=== PATIENT | male | born 1935 | race Caucasian/White ===

== ENCOUNTER 2017-01-25 22:17 | Observation (INO) | payer OTHER ==
--- NOTE | 2017-01-25 22:41 | CPEKG ---
Heart Rate: 70 RR Interval: 857 P-R Interval: 248 QRSD Interval: 88 QT Interval: 404 QTC Interval: 436 P Louisa: 21 QRS Louisa: -1 T Wave Louisa: 237 EKG Severity - ABNORMAL ECG - EKG Impression: SINUS RHYTHM EKG Impression: FIRST DEGREE AV BLOCK EKG Impression: LVH WITH SECONDARY REPOLARIZATION ABNORMALITY Electronically Signed By: Dedra Oakley 26-Jan-2017 01:25:03
--- NOTE | 2017-01-25 22:42 | EDPHY ---
H & P Stated Complaint: CP earlier today, high BP, feeling "off". HPI/ROS: HPI CHIEF COMPLAINT: Chest pain, hypertension HISTORY OF PRESENT ILLNESS: This patient is a very pleasant 81-year-old male, he has significant past medical history for anxiety, hypertension, chronic back pain and neck pain esophagitis, left chest pacemaker, as well as coronary artery disease without stents. He presents emergency room he states because over the past 5 hours he has had intermittent left-sided chest discomfort. He describes an achy sensation. Nonradiating. Also additionally he took his blood pressure at home and found that he was getting readings in the 180s over 100s. Since arriving to the emergency room he denies any chest pain. Denies any shortness of breath. He does report he had some nausea earlier. No vomiting. Additionally complains of chronic neck pain and back pain. Past Medical History: Chronic neck and back pain, hypertension, coronary disease without, anxiety, Mcmullen's esophagus Past Surgical History: Left chest pacemaker Social History: Denies daily use of drugs alcohol tobacco products. Family History: Noncontributory ROS REVIEW OF SYSTEMS: A comprehensive 10 point review of systems is otherwise negative aside from elements mentioned in the history of present illness. Exam Constitutional appears well nontoxic, triage nursing summary reviewed, vital signs reviewed, awake/alert. Eyes normal conjunctivae and sclera, EOMI, PERRLA. HENT normal inspection, atraumatic, moist mucus membranes, no epistaxis, neck supple/ no meningismus, no raccoon eyes. Respiratory clear to auscultation bilaterally, normal breath sounds, no respiratory distress, no wheezing. Cardiovascular rate normal, regular rhythm, no murmur, no edema, distal pulses normal. Gastrointestinal soft, non-tender, no rebound, no guarding, normal bowel sounds, no distension, no pulsatile mass. Genitourinary no CVA tenderness. Musculoskeletal no midline vertebral tenderness, full range of motion, no calf swelling, no tenderness of extremities, no meningismus, good pulses, neurovascularly intact. Skin pink, warm, & dry, no rash, skin atraumatic. Neurologic awake, alert and oriented x 3, AAOx3, moves all 4 extremities equally, motor intact, sensory intact, CN II-XII intact, normal cerebellar, normal vision, normal speech. Psychiatric normal mood/affect. Heme/Lymph/Immune no lymphadenopathy. Differential diagnosis includes but is not limited to: ACS, atypical chest pain , pneumothorax, pneumonia, pulmonary embolism, aortic dissection, congestive heart failure, tumor, musculoskeletal pain, esophageal pain, GERD, peptic ulcer disease, pancreatitis Medical Decision Making: Plan for this patient IV establishment, he is chest pain-free at this time, EKG, chest x-ray, blood work including troponin. Rule out acute coronary syndrome. Re-evaluation: EKG interpretation by me on record in [facility] system. Impression time of EKG 05/20/2038, this is sinus rhythm first-degree AV block noted. CO interval 248. LVH present. Room when I compare this EKG to his old EKG dated 03/01/2014 there appears to be more prominent ST depression in lead 1 aVL only 2. Otherwise no acute changes appreciated. 2352: Patient's blood pressure still 176/80. Chest pain-free. Plan will be for admission for chest discomfort, subtle ST depression in the lateral leads on his EKG as well as hypertension. I do not have a great explanation for his chest discomfort. He does not have chest pain at this time. However he did have a dull achy pain in left side of his chest. Troponin noted be negative. Blood pressure still elevated. I have ordered him IV hydralazine. Given his age, risk factors including hypertension, coronary artery disease subtle abnormal EKG and age old mid to the hospital for cardiac evaluation and rule out. 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, glaucoma, PROSTATIS, KNEE SURGERY - Social History Smoking Status: Former smoker Constitutional: Initial Vital Signs Heart Rate 70 01/25/17 22:23 Respiratory Rate 16 01/25/17 22:23 Blood Pressure 182/83 H 01/25/17 22:23 O2 Sat (%) 95 01/25/17 22:23 O2 Delivery Mode Room Air Allergies/Adverse Reactions: NSAIDS (Non-Steroidal Anti-Inflamma Allergy (Unknown, Verified 06/16/15 21:35) Penicillins Allergy (Unknown, Verified 06/16/15 21:35) amlodipine besylate [From Norvasc] Allergy (Verified 12/30/15 16:14) sulfamethoxazole [From Bactrim] Allergy (Verified 01/25/17 22:31) trimethoprim [From Bactrim] Allergy (Verified 01/25/17 22:31) contrast dye Allergy (Unknown, Uncoded 04/12/12 22:57) Home Medications: Medication Instructions Recorded Atorvastatin Calcium [Lipitor 10 5 mg PO DAILY 03/20/14 mg (*)] Cholecalciferol (Vitamin D3) 2,000 unit PO DAILY 03/20/14 [Vitamin D3] Lisinopril [Zestril 20 mg (*)] 20 mg PO DAILY 03/20/14 Multivitamins [Multivitamin (*)] 1 each PO DAILY 03/20/14 Nebivolol HCl [Bystolic 5 mg (*)] 2.5 mg PO HS 03/20/14 [place]-3 Fatty Acids [Fish Oil 1000 1,000 mg PO HS 03/20/14 mg (*)] Sertraline HCl [Zoloft 50mg (*)] 75 mg PO DAILY 03/20/14 oxyCODONE/APAP 5/325 [Percocet 1 tab PO Q6H PRN 03/20/14 5/325 (*)] Aspirin [Aspirin 81mg (*)] 81 mg PO DAILY 02/20/16 Lansoprazole [Prevacid] 15 mg PO DAILY 02/20/16 Latanoprost 0.005% [Xalatan 0.005% 1 drops EACHEYE HS 02/20/16 (*)] Levothyroxine [Synthroid 112 mcg 112 mcg PO DAILY06 01/26/17 (*)] clonazePAM [Klonopin (*)] 0.5 - 1 mg PO HS PRN 01/26/17 Medical Decision Making - Data Points Laboratory Results: Laboratory Results 01/25/17 22:57 01/25/17 22:57 Medications Given: Discontinued Medications Clonazepam (Klonopin) 0.5 mg PO ONCE ONE Stop: 01/26/17 00:09 Last Admin: 01/26/17 00:16 Dose: 0.5 mg Hydralazine HCl (Apresoline) 10 mg IVP EDNOW ONE Stop: 01/25/17 23:52 Last Admin: 01/26/17 00:07 Dose: 10 mg Sodium Chloride (Ns) 500 mls @ 1,000 mls/hr IV EDNOW ONE PRN Reason: Protocol Stop: 01/25/17 23:23 Last Admin: 01/25/17 23:07 Dose: 500 mls Oxycodone/Acetaminophen (Percocet 5/325) 1 tab PO ONCE ONE Stop: 01/26/17 00:09 Last Admin: 01/26/17 00:16 Dose: 1 tab Departure - Departure Disposition: [facility] Acute Clinical Impression: Chest pain Qualifiers: Chest pain type: unspecified Qualified Code(s): R07.9 - Chest pain, unspecified Hypertension Qualifiers: Hypertension type: unspecified Qualified Code(s): I10 - Essential (primary) hypertension Condition: Fair
[2017-01-25] MEDS ORDERED: NS 500 ML IV ONE (22:54)
[2017-01-25 23:05] LABS: % IMMATURE GRANULYOCYTES 0.3 % (0.0-1.1); ABSOLUTE IMMATURE GRANULOCYTES 0.02 10^3/uL (0.00-0.10); ADD DIFF? NO; ADD MORPH? NO; ADD SCAN? NO; ATYPICAL LYMPHOCYTE FLAG 10 (0-99); FRAGMENT RBC FLAG 0 (0-99); HEMOGLOBIN 13.6 g/dL (13.7-17.5); LEFT SHIFT FLG 0 (0-99); LIPEMIA HEMOLYSIS FLAG 90 (0-99); MEAN CELL HEMOGLOBIN 31.6 pg (27.9-34.1); MEAN CELL HEMOGLOBIN CONCENTR. 34.9 g/dL (32.4-36.7); MEAN CELL VOLUME 90.5 fL (81.5-99.8); MEAN PLATELET VOLUME 10.1 fL (8.7-11.7); PLATELET CLUMPS FLAG 0 (0-99); PLATELET COUNT 172 10^3/uL (150-400); RED BLOOD CELL COUNT 4.31 10^6/uL (4.40-6.38); RED CELL DISTRIBUTION WIDTH 12.6 % (11.5-15.2)
[2017-01-25 23:14] LABS: APTT 29.7 SEC (23.0-38.0); INR 1.06 (0.83-1.16); PROTIME(PATIENT) 13.7 SEC (12.0-15.0)
[2017-01-25 23:17] LABS: ALANINE AMINOTRANSFERASE 28 IU/L (21-72); ALBUMIN 3.8 g/dL (3.5-5.0); ALKALINE PHOSPHATASE 42 IU/L (38-126); ANION GAP 13 mEq/L (8-16); ASPARTATE AMINOTRANSFERASE 32 IU/L (17-59); BILIRUBIN,TOTAL 0.3 mg/dL (0.1-1.4); BILIRUBIN-CONJUGATED 0.1 mg/dL (0.0-0.5); BILIRUBIN-UNCONJUGATED 0.2 mg/dL (0.0-1.1); CALCIUM 9.3 mg/dL (8.5-10.4); CARBON DIOXIDE 28 mEq/l (22-31); CHLORIDE 99 mEq/L (97-110); GLOMERULAR FILTRATION RATE > 60; GLUCOSE 120 mg/dL (70-100); MAGNESIUM 1.9 mg/dL (1.6-2.3); POTASSIUM 4.6 mEq/L (3.5-5.2); SODIUM 140 mEq/L (134-144); TOTAL PROTEIN 7.1 g/dL (6.3-8.2)
[2017-01-25 23:29] LABS: TROPONIN I 0.019 ng/mL (0.000-0.034)
[2017-01-25 23:48] LABS: CK-MB INTERPRETATION NEGATIVE (NEGATIVE)
[2017-01-25] MEDS ORDERED: hydrALAZINE 20 MG/ML VIAL IVP ONE (23:51)
[2017-01-25] MEDS ORDERED: ACETAMINOPHEN 325 MG TAB PO PRN (23:55)
[2017-01-25] MEDS ORDERED: ONDANSETRON 4 MG/2 ML VIAL IVP PRN (23:55)
[2017-01-25] MEDS ORDERED: ONDANSETRON DISINTEGRATING 4 MG TAB PO PRN (23:55)
[2017-01-26] MEDS ORDERED: clonazePAM 0.5 MG TAB PO ONE (00:08)
[2017-01-26] MEDS ORDERED: OXYCODONE/APAP 5/325 TAB PO ONE (00:08)
[2017-01-26] MEDS ORDERED: OXYCODONE/APAP 5/325 TAB ONE (00:11)
[2017-01-26] MEDS ORDERED: clonazePAM 0.5 MG TAB ONE (00:15)
--- NOTE | 2017-01-26 01:35 | PDGENHP ---
History and Physical - Chief Complaint Chest pain - History of Present Illness 81 yo M w/ hx of SSS s/p PPM, HTN, and CAD s/p angioplasty of LCx in 2016 presents with chest discomfort. Patient states he was taking a mild walk when he started to notice what he describes as a spasm in his left chest. This would last a few minutes and then go away. This occurred multiple times over the next couple of hours no matter what activity he was doing. He checked his BP at home and it was elevated so he decided to come to the ED. History Information - Allergies/Home Medication List Allergies/Adverse Reactions: NSAIDS (Non-Steroidal Anti-Inflamma Allergy (Unknown, Verified 06/16/15 21:35) Penicillins Allergy (Unknown, Verified 06/16/15 21:35) amlodipine besylate [From Norvasc] Allergy (Verified 12/30/15 16:14) sulfamethoxazole [From Bactrim] Allergy (Verified 01/25/17 22:31) trimethoprim [From Bactrim] Allergy (Verified 01/25/17 22:31) contrast dye Allergy (Unknown, Uncoded 04/12/12 22:57) Home Medications: Atorvastatin Calcium [Lipitor 10 mg (*)] 5 mg PO DAILY 03/20/14 [Last Taken 21:00] Cholecalciferol (Vitamin D3) [Vitamin D3] 2,000 unit PO DAILY 03/20/14 [Last Taken 02/21/16] Lisinopril [Zestril 20 mg (*)] 5 mg PO DAILY 03/20/14 [Last Taken 02/28/16] Multivitamins [Multivitamin (*)] 1 each PO DAILY 03/20/14 [Last Taken 02/21/16] Nebivolol HCl [Bystolic 5 mg (*)] 2.5 mg PO HS 03/20/14 [Last Taken 02/29/16 07: 30] [place]-3 Fatty Acids [Fish Oil 1000 mg (*)] 1,000 mg PO HS 03/20/14 [Last Taken 02/21/16] Sertraline HCl [Zoloft 50mg (*)] 75 mg PO DAILY 03/20/14 [Last Taken 02/29/16 07 :30] clonazePAM [Klonopin (*)] 0.5 - 1 mg PO HS PRN 03/20/14 [Last Taken 02/28/16 21: 00] oxyCODONE/APAP 5/325 [Percocet 5/325 (*)] 1 tab PO Q4 PRN 03/20/14 [Last Taken 02/29/16 07:30] Aspirin 02/20/16 [Last Taken 02/29/16 07:30] Lantanoprost 02/20/16 [Last Taken 02/28/16 21:00] Prevacid 02/20/16 [Last Taken 02/29/16 07:30] Synthroid PO 02/20/16 [Last Taken 02/29/16 07:30] I have personally reviewed and updated: family history, medical history - Past Medical History coronary artery disease, hypertension Additional medical history: SSS s/p PPM - Surgical History Reports: pacemaker/AICD - Family History Positive for: CAD - Social History Smoking Status: Former smoker Review of Systems Review of Systems: ROS: 10pt was reviewed & negative except for what was stated in HPI & below Physical Exam Physical Exam: Temp Pulse Resp BP Pulse Ox 68 16 143/71 H 96 01/26/17 00:15 01/26/17 00:15 01/26/17 00:15 01/26/17 00:15 Constitutional: no apparent distress, not in pain Eyes: PERRL, EOMI Ears, Nose, Mouth, Throat: moist mucous membranes, no oral mucosal ulcers Cardiovascular: regular rate and rhythym, systolic murmur, No edema Respiratory: no respiratory distress, no rales or rhonchi Gastrointestinal: normoactive bowel sounds, soft, non-tender abdomen Skin: warm, normal color Musculoskeletal: full muscle strength, no muscle tenderness Neurologic: AAOx3, CN II-XII Intact Lab Data & Imaging Review 01/25/17 22:57 01/25/17 22:57 WBC 7.62 10^3/uL (3.80-9.50) 01/25/17 22:57 RBC 4.31 10^6/uL (4.40-6.38) L 01/25/17 22:57 Hgb 13.6 g/dL (13.7-17.5) L 01/25/17 22:57 Hct 39.0 % (40.0-51.0) L 01/25/17 22:57 MCV 90.5 fL (81.5-99.8) 01/25/17 22:57 MCH 31.6 pg (27.9-34.1) 01/25/17 22:57 MCHC 34.9 g/dL (32.4-36.7) 01/25/17 22:57 RDW 12.6 % (11.5-15.2) 01/25/17 22:57 Plt Count 172 10^3/uL (150-400) 01/25/17 22:57 MPV 10.1 fL (8.7-11.7) 01/25/17 22:57 Neut % (Auto) 69.4 % (39.3-74.2) 01/25/17 22:57 Lymph % (Auto) 18.0 % (15.0-45.0) 01/25/17 22:57 Parmer % (Auto) 10.6 % (4.5-13.0) 01/25/17 22:57 Eos % (Auto) 1.3 % (0.6-7.6) 01/25/17:57 Baso % (Auto) 0.4 % (0.3-1.7) 01/25/17 22:57 Nucleat RBC Rel Count 0.0 % (0.0-0.2) 01/25/17 22:57 Absolute Neuts (auto) 5.29 10^3/uL (1.70-6.50) 01/25/17 22:57 Absolute Lymphs (auto) 1.37 10^3/uL (1.00-3.00) 01/25/17 22:57 Absolute Monos (auto) 0.81 10^3/uL (0.30-0.80) H 01/25/17 22:57 Absolute Eos (auto) 0.10 10^3/uL (0.03-0.40) 01/25/17 22:57 Absolute Basos (auto) 0.03 10^3/uL (0.02-0.10) 01/25/17 22:57 Absolute Nucleated RBC 0.00 10^3/uL (0-0.01) 01/25/17 22:57 Immature Gran % 0.3 % (0.0-1.1) 01/25/17 22:57 Immature Gran # 0.02 10^3/uL (0.00-0.10) 01/25/17 22:57 PT 13.7 SEC (12.0-15.0) 01/25/17 22:57 INR 1.06 (0.83-1.16) 01/25/17 22:57 APTT 29.7 SEC (23.0-38.0) 01/25/17 22:57 Sodium 140 mEq/L (134-144) 01/25/17 22:57 Potassium 4.6 mEq/L (3.5-5.2) 01/25/17 22:57 Chloride 99 mEq/L (97-110) 01/25/17 22:57 Carbon Dioxide 28 mEq/l (22-31) 01/25/17 22:57 Anion Gap 13 mEq/L (8-16) 01/25/17 22:57 BUN 34 mg/dL (7-23) H 01/25/17 22:57 Creatinine 1.0 mg/dL (0.7-1.3) 01/25/17 22:57 Estimated GFR > 60 01/25/17 22:57 Glucose 120 mg/dL (70-100) H 01/25/17 22:57 Calcium 9.3 mg/dL (8.5-10.4) 01/25/17 22:57 Magnesium 1.9 mg/dL (1.6-2.3) 01/25/17 22:57 Total Bilirubin 0.3 mg/dL (0.1-1.4) 01/25/17 22:57 Conjugated Bilirubin 0.1 mg/dL (0.0-0.5) 01/25/17 22:57 Unconjugated Bilirubin 0.2 mg/dL (0.0-1.1) 01/25/17 22:57 AST 32 IU/L (17-59) 01/25/17 22:57 ALT 28 IU/L (21-72) 01/25/17 22:57 Alkaline Phosphatase 42 IU/L (38-126) 01/25/17 22:57 Creatine Kinase 112 IU/L (0-224) 01/25/17 22:57 CK-MB (CK-2) Fraction 3.40 ng/mL (0.00-3.19) H 01/25/17 22:57 CK-MB (CK-2) % 3.0 % (0.0-4.0) 01/25/17 22:57 Creatine Kinase Interp NEGATIVE (NEGATIVE) 01/25/17 22:57 Troponin I 0.019 ng/mL (0.000-0.034) 01/25/17 22:57 NT-Pro-B Natriuret Pep 499 pg/mL (0-450) H 01/25/17 22:57 Total Protein 7.1 g/dL (6.3-8.2) 01/25/17 22:57 Albumin 3.8 g/dL (3.5-5.0) 01/25/17 22:57 Lipase 130 IU/L (23-300) 01/25/17 22:57 Visualized and Interpreted Chest x-ray results: Yes Chest X-Ray results: normal Visualized and Interpreted EKG results: Yes EKG Interpretation: Positive for: ST depression (I, AVL, V5) Assessment & Plan Assessment: 81 yo M w/ hx of CAD, SSS s/p PPM, HTN presents with chest discomfort. Plan: 1. Chest pain - Atypical in that pain felt like a muscle spasm and came and went over several hours without regards to activity level. Troponin negative but ECG with subtle ST depressions in I, AVL, V5, which is concerning noting hx of prior angioplasty to LCx in 2016. Of note, he had a normal nuclear stress test in June of this year at [facility]. It is also possible that pain is related to blood pressure, which was 180/100 on arrival. - Monitor on telemetry, trend enzymes - Will not order repeat nuc stress since he had one a few months ago - Will consult cardiology to review symptoms and ECG 2. Hx CAD - Patient reports prior angioplasty without stent to LCx in 2016. He takes ASA, BB, statin. 3. HTN - Uncontrolled on admission, improved with hydralazine PRN. Continue home meds. 4. Neck, back pain - May be exacerbating BP issues noting increased discomfort over last few weeks. He had a recent CT scan for further evaluation. Diet - NPO Code - Full Ppx - SCDs Dispo - Admit to observation status
[2017-01-26 01:43] VITALS: PULSE 65
[2017-01-26 05:01] LABS: % IMMATURE GRANULYOCYTES 0.2 % (0.0-1.1); ABSOLUTE IMMATURE GRANULOCYTES 0.02 10^3/uL (0.00-0.10); ADD DIFF? NO; ADD MORPH? NO; ADD SCAN? NO; ATYPICAL LYMPHOCYTE FLAG 0 (0-99); FRAGMENT RBC FLAG 0 (0-99); HEMATOCRIT 35.4 % (40.0-51.0); HEMOGLOBIN 12.3 g/dL (13.7-17.5); LEFT SHIFT FLG 0 (0-99); LIPEMIA HEMOLYSIS FLAG 90 (0-99); MEAN CELL HEMOGLOBIN 31.7 pg (27.9-34.1); MEAN CELL HEMOGLOBIN CONCENTR. 34.7 g/dL (32.4-36.7); MEAN CELL VOLUME 91.2 fL (81.5-99.8); MEAN PLATELET VOLUME 10.4 fL (8.7-11.7); PLATELET CLUMPS FLAG 0 (0-99); PLATELET COUNT 150 10^3/uL (150-400); RED BLOOD CELL COUNT 3.88 10^6/uL (4.40-6.38); RED CELL DISTRIBUTION WIDTH 12.6 % (11.5-15.2)
[2017-01-26 05:19] LABS: ANION GAP 12 mEq/L (8-16); CALCIUM 8.7 mg/dL (8.5-10.4); CARBON DIOXIDE 22 mEq/l (22-31); CHLORIDE 103 mEq/L (97-110); GLOMERULAR FILTRATION RATE > 60; GLUCOSE 90 mg/dL (70-100); MAGNESIUM 1.8 mg/dL (1.6-2.3); POTASSIUM 4.1 mEq/L (3.5-5.2); SODIUM 137 mEq/L (134-144)
[2017-01-26 05:27] LABS: TROPONIN I 0.021 ng/mL (0.000-0.034)
--- NOTE | 2017-01-26 10:15 | GCON ---
[f rep st] CONSULTATION CARDIOLOGY CONSULTATION DATE OF CONSULTATION: 01/26/2017 INDICATIONS: Chest pain, known coronary artery disease. HISTORY OF PRESENT ILLNESS: The patient is a pleasant 81-year-old male seen in consultation on the [facility]. He is typically followed as an outpatient previously by Dr. Mann and most recently by Dr. Mabel hernandez. He has known coronary artery disease and a previous dual-chamber pacemaker. Apparently, his pace maker was implanted about a year and a half ago and his coronary disease was discovered about a month later. He had angioplasty of a circumflex done at that time. Apparently, attempts at stenting were unsuccessful. He describes having had a Lexiscan myocardial perfusion imaging [place]. He was told that was normal. He typically exercises by going for a walk. He like s to walk about a mile and a half when the weather is good. He did his usual walk over this last kend without difficulties. Yesterday, following his walk, he experienced a 1-2 minute episode of twi nging chest discomfort in the region of his pacemaker over his left chest. The pain was not associat ed with shortness of breath, nausea, or vomiting. He had no palpitations. Later that evening, durin g dinner, he had a similar 60-90 second episode of discomfort. Apparently, he had several more of th qi throughout the evening. None of these were associated with a sensation of nausea, vomiting, or d iaphoresis. He also notes that on occasions he has had slight chills and mild fatigue. He has had t hese symptoms now for the last year to year and a half. Because of these symptoms, he came to the em ergency department for further evaluation. On arrival, he was noted to be hypertensive, subsequently became normotensive. He has never had an oxygen requirement. He has had no objective fever. His h eart rates have been in the 60s. Sequential lab tests were drawn. He had twice measurement of his t roponin, initially at 11 o'clock last night and again at 4:35 this morning. Those were noted to be n ormal. He had a chest x-ray that was unremarkable. I reviewed his electrocardiogram. That demonstr ated sinus rhythm at 70 beats per minute with minor nonspecific ST changes noted in the lateral leads . He had voltage criteria for left ventricular hypertrophy. PAST MEDICAL HISTORY: 1. Coronary artery disease, as described above. 2. History of sick sinus syndrome with previous dual-chamber pacemaker implantation. 3. Hypertension. 4. History of GERD with Mcmullen esophagitis. 5. History of Celso thyroiditis. 6. Glaucoma. 7. History of bladder stones. 8. Severe degenerative disk disease involving his cervical spine and lumbar spine. SURGICAL HISTORY: 1. Previous pacemaker as noted above, prior PCI without stenting as noted above. 2. History of both cervical fusions involving the C4-5 and 5-6, as well as lumbar spine fusions invo lving L5 and S1. 3. History of previous EGD. ALLERGIES: He has multiple allergies. These are detailed on the chart and not repeated here. FAMILY HISTORY: At this point is noncontributory. SOCIAL HISTORY: He is . He has been living in [place] since the 60s. He came here to work a t the [employer]. 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 He likes to walk. He does not abuse alcohol, drugs, or tobacco products. REVIEW OF SYSTEMS: A full 10-point review of systems was performed. With the exception of the above positives, this was negative. PHYSICAL EXAMINATION: VITAL SIGNS: Currently his blood pressure is 133/69 with a mean of 90, respir atory rate has been in the teens. He has been afebrile. Room air saturations are 98%. GENERAL: He is a healthy white male, in no acute distress. HEENT: Normocephalic, atraumatic. He has anicteric sclerae. Oropharynx unremarkable. Carotids 2+ bilaterally with no bruits. RESPIRATORY: He speaks in full sentences using no accessory muscles. On auscultation he has clear lung lozano bilaterally. CARDIAC: Precordial inspection unremarkable. PMI is nondisplaced. On auscultation, he has a regu lar rate and rhythm without murmurs, gallops, or rubs. He has a pacemaker in the left infraclavicula r fossa. He has no reproducible chest wall tenderness. ABDOMEN: Soft and nontender, with normoacti ve bowel sounds. No masses are noted. His abdominal aorta is nonpalpable. EXTREMITIES: Well perfu sed and warm. He has 2+ radial and dorsal pedal and posterior tibial pulses. NEUROLOGIC: He is steffen rt and oriented, with pleasant mood and affect. Moves all 4 limbs spontaneously. DATABASE: As noted above. IMPRESSION: The patient is 81 years old and has known cardiovascular disease in the form of known co ronary artery disease with previous angioplasty of a circumflex vessel and previous permanent pacemak er done about a year and a half ago. Additionally, he has ongoing risk factors of hypertension and h yperlipidemia. He presents now with highly atypical chest discomfort. He has had multiple episodes of fairly focal twinges of chest pain involving his left chest now intermittently during yesterday ev ening. He has had no episodes lasting longer than about 1-2 minutes. His symptoms of chest discomfo rt are not associated with shortness of breath, nausea, or vomiting. Cardiac enzymes are negative. His ECG demonstrates minor nonspecific changes. At this point, there is no indication of a high risk chest pain syndrome. My clinical suspicion for an acute coronary syndrome is low, as well as for pu lmonary embolism is low. There is no indication for an infectious process at the present time. Derek tionally, there is no clinical history that would suggest aortic dissection. RECOMMENDATIONS: 1. I would like to draw 1 more set of cardiac enzymes. 2. I will repeat his EKG. 3. Provided his enzymes are negative and he has no evolutionary ECG changes, I think that he can be discharged home with close clinical followup. 4. He states that he has an appointment to see his primary care doctor tomorrow actually. This is r jihan. /[id number]/MODL
--- NOTE | 2017-01-26 10:20 | CPEKG ---
Heart Rate: 104 RR Interval: 577 QRSD Interval: 214 QT Interval: 316 QTC Interval: 416 QRS Hardin: 79 T Wave Hardin: 139 EKG Severity - ABNORMAL ECG - EKG Impression: A-V DUAL-PACED RHYTHM WITH SOME INHIBITION EKG Impression: NONSPECIFIC INTRAVENTRICULAR CONDUCTION DELAY EKG Impression: NONSPECIFIC ST DEPRESSION, ANTERIOR LEADS Electronically Signed By: Dedra Oakley 27-Jan-2017 07:01:18
[2017-01-26 12:06] VITALS: BP 123/66; RESP 8; TEMP 97.7; O2SAT 96
[2017-01-26] MEDS ORDERED: OXYCODONE/APAP 5/325 TAB PO PRN (12:57)
[2017-01-26] MEDS ORDERED: clonazePAM 0.5 MG TAB PO PRN (12:57)
[2017-01-26] MEDS ORDERED: MULTIVITAMINS 1 EACH TAB PO SCH (13:00)
[2017-01-26] MEDS ORDERED: LEVOTHYROXINE 112 MCG TAB PO SCH (13:00)
[2017-01-26] MEDS ORDERED: SERTRALINE HCL 50 MG TAB PO SCH (13:00)
[2017-01-26] MEDS ORDERED: ATORVASTATIN CALCIUM 10 MG TAB PO SCH (13:00)
[2017-01-26] MEDS ORDERED: LISINOPRIL 20 MG TAB PO SCH (13:00)
[2017-01-26] MEDS ORDERED: CHOLECALCIFEROL VIT D3 2,000 UNITS TAB/CAP PO SCH (13:15)
[2017-01-26] MEDS ORDERED: PANTOPRAZOLE SODIUM 40 MG TAB PO SCH (13:15)
--- NOTE | 2017-01-26 13:38 | PDDCSUM ---
Discharge Summary Discharge Summary: HPI/HOSPITAL COURSE: 81 yo M w/ hx of CAD, SSS s/p PPM, HTN presents with chest discomfort. Dr. Gallardo with Cardiology provided consultation. He has been cleared for discharge as he is no longer symptomatic and w/u has been negative. He has an appt with his PCP tomorrow. He should also f/u with Dr. Herrera with cardiology in 1-3 weeks. Recent normal nuc stress test. No events on telemetry EKG: non specific changes Trop: 0.019 x 3 DDx: 1. Chest pain - Atypical 2. Hx CAD - Patient reports prior angioplasty without stent to LCx in 2016. He takes ASA, BB, statin. 3. HTN 4. Neck, back pain - May be exacerbating BP issues noting increased discomfort over last few weeks. He had a recent CT scan for further evaluation. Exam: NAD AAOX3 RRR CTA B S/NT/ND NO LE EDEMA MEDS: SEE MED REC. NO CHANGES MADES F/U PER ABOVE TOTAL TIME SPENT ON D/C IS 35 MINUTES
--- NOTE | 2017-01-26 14:12 | ASMTCMCOM ---
CM Note CM Note Notes: 81 year old male admitted for CP, HTN, Neck and back pain. He has a hx of CAD. Patient had a heart work-up and no longer symptomatic, so is being discharged today. OT cleared him for returning home w/his . NO other needs at this time. Date Signed: 01/26/2017 02:12 PM Electronically Signed By:Christi Martin LCSW
--- NOTE | 2017-01-26 14:30 | ASDISCHSUM ---
Discharge Information Plan Status:Home with No Needs Medically Cleared to Leave:01/26/2017 Discharge Date:01/26/2017 02:26 PM CM D/C Disposition:Home, Routine, Self-Care ADT D/C Disposition:Home, Routine, Self-Care Projected Discharge Date:01/26/2017 03:00 PM Transportation at D/C:Family Discharge Delay Reason: Follow-Up Date:01/26/2017 03:00 PM Discharge Slot:2 - 12:01 pm - 18:00 pm Final Diagnosis:CP, HTN Placement Information Patient Contact Information Contact Name:LIBBY Relationship: Address:[address] City:[place] Alternate Phone: State/Zip Code:[place] [address] Email: Financial Information Financial Class: Primary Plan Desc:MEDICARE OUTPATIENT Primary Plan Number:[id number] Secondary Plan Desc:DARA PPO [facility] Secondary Plan Number:[id number] Assessment Information [facility] CM Progress Note CM Note CM Note Notes: 81 year old male admitted for CP, HTN, Neck and back pain. He has a hx of CAD. Patient had a heart work-up and no longer symptomatic, so is being discharged today. OT cleared him for returning home w/his . NO other needs at this time. Date Signed: 01/26/2017 02:12 PM Electronically Signed By:Christi Martin LCSW Intervention Information
[2017-01-26] MEDS ORDERED: OMEGA-3 FATTY ACIDS 1,000 MG CAP PO SCH (21:00)
[2017-01-26] MEDS ORDERED: LATANOPROST 0.005% 2.5 ML OPHT DROPS EACHEYE SCH (21:00)
[2017-01-26] MEDS ORDERED: NEBIVOLOL HCL 5 MG TAB PO SCH (21:00)
[2017-01-27] MEDS ORDERED: ASPIRIN 81 MG CHEWABLE TAB PO SCH (09:00)
== END 2017-01-26 14:26 | disposition home or self-care (01) ==
LOC: F2W 01-26 00:57
PROVIDERS: ADMIT Student in an Organized Health Care Education/Training Program; ATTEND Family Medicine
DX: R07.89 Other chest pain (principal); I10 Essential (primary) hypertension; E86.9 Volume depletion, unspecified; M54.2 Cervicalgia; M54.5 Low back pain; I25.10 Atherosclerotic heart disease of native coronary artery without angina pectoris; F41.9 Anxiety disorder, unspecified; K21.9 Gastro-esophageal reflux disease without esophagitis; Z95.0 Presence of cardiac pacemaker; Z98.1 Arthrodesis status
CPT/HCPCS: 71010; 93005; 96360; 97165; 99285; G0378; G8987; G8988; G8989; J0360

== ENCOUNTER → 2017-08-05 | Outpatient (CLI) | payer OTHER | LOC: FCPNEURO 21:00 | PROVIDERS: ATTEND Internal Medicine Sleep Medicine | DX: G47.33 Obstructive sleep apnea (adult) (pediatric) (principal); G47.36 Sleep related hypoventilation in conditions classified elsewhere; G47.61 Periodic limb movement disorder ==

== ENCOUNTER → 2017-09-22 | Outpatient (CLI) | payer OTHER | LOC: FCPNEURO 21:00 | PROVIDERS: ATTEND Internal Medicine Sleep Medicine | DX: G47.33 Obstructive sleep apnea (adult) (pediatric) (principal); G47.61 Periodic limb movement disorder ==

== ENCOUNTER → 2018-05-10 | Outpatient (CLI) | payer OTHER | LOC: FCPNEURO 20:30 | PROVIDERS: ATTEND Psychiatry & Neurology Sleep Medicine | DX: G47.33 Obstructive sleep apnea (adult) (pediatric) (principal) ==